=== PATIENT | male | born 1970 | race Caucasian/White ===

== ENCOUNTER 2019-06-09 15:39 | Inpatient (IN) | payer BC, OTHER ==
[2019-06-09] MEDS ORDERED: NS 0.9% 1000 ML** 1,000 ML IV ONE ×2 (17:33→18:37)
[2019-06-09] MEDS ORDERED: Piperacillin/Tazobac ADVAN(*) 3.375 GM in NS 0.9% 100 ML* 100 ML IVPB ONE (17:35)
--- NOTE | 2019-06-09 17:43 | ED ---
Lower Extremity - HPI Summary HPI Summary: This patient is a 48 year old M presenting to [facility] accompanied by son with a chief complaint of right leg pain since 0800. Patient states that he has been feeling unwell for a while and noticed a rash on his right lower extremity at 0800 and eventually decided to come to the ED because of the pain. The patient rates the pain 2/10 in severity. Symptoms aggravated by baring weight and movement. Symptoms alleviated by nothing. Patient reports hot flashes, shortness of breath and fever. Patient reports rare alcohol use. Patient denies any at home medications and past medical problems. Patient denies tobacco use and substance abuse. - History of Current Complaint Chief Complaint: EDGeneral Stated Complaint: FEVER PER PT Time Seen by Provider: 06/09/19 17:23 Hx Obtained From: Patient Onset of Pain: Hours - 0800 Onset/Duration: Still Present Severity Currently: Mild Pain Intensity: 2 Pain Scale Used: 0-10 Numeric Timing: Constant Location: Is Discrete @ - Right lower leg Associated Signs And Symptoms: Positive: Fever, Other - right lower extremity rash Aggravating Factor(s): Ambulation, Movement Alleviating Factor(s): Nothing - Allergies/Home Medications Allergies/Adverse Reactions: Allergies Allergy/AdvReac Type Severity Reaction Status Date / Time No Known Allergies Allergy Verified 06/09/19 15:45 Home Medications: Home Medications NK [No Home Medications Reported] 06/09/19 [History Confirmed 06/09/19] PMH/Surg Hx/FS Hx/Imm Hx Cardiovascular History: Denies: Hx Hypertension Sensory History: Denies: Hx Legally Blind, Hx Deafness Opthamlomology History: Denies: Hx Legally Blind Infectious Disease History: No Infectious Disease History: Denies: Traveled Outside the [place] in Last 30 Days - Family History Known Family History: Negative: Hypertension, Diabetes - Social History Alcohol Use: Occasionally Substance Use Type: Reports: None Smoking Status (MU): Current Every Day Smoker Review of Systems Positive: Fever - 101 F Positive: Shortness Of Breath Positive: Other - right lower extremity rash All Other Systems Reviewed And Are Negative: Yes Physical Exam - Summary Physical Exam Summary: VITAL SIGNS: Reviewed. GENERAL: Patient is a well-developed and nourished (MALE OR FEMALE) who is lying comfortable in the stretcher. Patient is not in any acute respiratory distress. HEAD AND FACE: No signs of trauma. No ecchymosis, hematomas or skull depressions. No sinus tenderness. EYES: PERRLA, EOMI x 2, No injected conjunctiva, no nystagmus. EARS: Hearing grossly intact. Ear canals and tympanic membranes are within normal limits. MOUTH: Oropharynx within normal limits. NECK: Supple, trachea is midline, no adenopathy, no JVD, no carotid bruit, no c- spine tenderness, neck with full ROM. CHEST: Symmetric, no tenderness at palpation. LUNGS: Clear to auscultation bilaterally. No wheezing or crackles. CVS: Regular rate and rhythm, S1 and S2 present, no murmurs or gallops appreciated. ABDOMEN: Soft, non-tender. No signs of distention. No rebound, no guarding, and no masses palpated. Bowel sounds are normal. EXTREMITIES: FROM in all major joints, no edema, no cyanosis or clubbing. Lower right extremity erythema with irregular borders with tenderness. NEURO: Alert and oriented x 3. No acute neurological deficits. Speech is normal and follows commands. SKIN: Dry and warm. Lower right extremity erythema with irregular borders. Triage Information Reviewed: Yes Vital Signs On Initial Exam: Initial Vitals Temp Pulse Resp BP Pulse Ox 98.4 F 115 16 145/79 94 06/09/19 15:42 06/09/19 15:42 06/09/19 15:42 06/09/19 15:42 06/09/19 15:42 Vital Signs Reviewed: Yes Diagnostics - Vital Signs Vital Signs Temp Pulse Resp BP Pulse Ox 06/09/19 17:32 101 F 06/09/19 17:27 109 114/77 94 06/09/19 17:24 111 95 06/09/19 15:42 98.4 F 115 16 145/79 94 - Laboratory Result Diagrams: 06/10/19 04:05 06/10/19 04:05 Lab Statement: Any lab studies that have been ordered have been reviewed, and results considered in the medical decision making process. Lower Extremity Course/Dx - Course Assessment/Plan: This patient is a 48-year-old male who presents to the emergency department with a chief complaint of having flu like symptoms and a rash in the right lower extremity. Blood test results show a wbcs of 15.8, absolute neutrophils 11.7, sodium is 133, potassium 3.2, for which the patient was given potassium chloride and CRP of 104.7. Initially the patient did not follow-through for sepsis therefore I sent blood cultures I started IV fluids and he was given Zosyn. The patients blood pressure decreased and he continues to be slightly tachycardic therefore believe that the patient is becoming septic. Therefore I used a 30 ccs per KG IV fluids and admitted to vancomycin. At this point I discussed my physical exam and findings with Dr. Rico from the hospital services who accepted the patient for admission. - Diagnoses Provider Diagnoses: Cellulitis, Sepsis - Physician Notifications Discussed Care Of Patient With: Miguelina Rico - Hospitalist Time Discussed With Above Provider: 18:36 Instructed by Provider To: Other - Dr. Rico accepts patient for admission. Discharge ED - Sign-Out/Discharge Documenting (check all that apply): Patient Departure - admitted Patient Received Moderate/Deep Sedation with Procedure: No - Discharge Plan Condition: Stable Disposition: ADMITTED TO [facility] - Billing Disposition and Condition Condition: STABLE Disposition: Admitted to [facility] - Attestation Statements Document Initiated by Jacqueline: Yes Documenting Scribe: Isela Plummer Provider For Whom Jacqueline is Documenting (Include Credential): Dr. Byron Aguilar MD Scribe Attestation: I, Isela Plummer scribed for Dr. Byron Aguilar MD on 06/10/19 at 1031. Scribe Documentation Reviewed: Yes Provider Attestation: The documentation as recorded by the Isela tomas accurately reflects the service I personally performed and the decisions made by me, Dr. Byron Aguilar MD Status of Scribe Document: Viewed
[2019-06-09 18:11] LABS: ABS Basophils 0.1 10^3/ul (0-0.2); ABS Eosinophils 0.2 10^3/ul (0-0.6); ABS Lymphocytes 2.7 10^3/ul (1.0-4.8); ABS Monocytes 1.1 10^3/ul (0-0.8); ABS Neutrophils 11.7 10^3/ul (1.5-7.7); Eosinophil % 1.2 %; Hematocrit 43 % (42-52); Hemoglobin 14.9 g/dL (14.0-18.0); Mean Corpuscular HGB Conc 35 g/dL (31-36); Mean Corpuscular Hemoglobin 32 pg (27-31); Mean Corpuscular Volume 92 fL (80-94); Mean Platelet Volume 9.1 fL (7.4-10.4); Platelet Count 149 10^3/uL (150-450); Red Blood Count 4.66 10^6 /uL (4.18-5.48); Red Cell Distribution Width 13 % (10-15); White Blood Count 15.8 10^3/uL (3.5-10.8)
[2019-06-09 18:29] LABS: Albumin 4.1 g/dL (3.2-5.2); Albumin/Globulin Ratio 1.4 (1-3); BUN/Creatinine Ratio 8.3 (8-20); C Reactive Protein 104.7 mg/L (<8.01); Calcium 8.6 mg/dL (8.6-10.3); EGFR African American 88.7 (>60); EGFR Non-African American 73.3 (>60); Potassium 3.2 mmol/L (3.5-5.0); Total Bilirubin 0.9 mg/dL (0.2-1.0); Total Protein 7.1 g/dL (6.4-8.9); Uric Acid 6.5 mg/dL (4.4-7.6)
[2019-06-09] MEDS ORDERED: Vancomycin(*) 1,000 MG in NS 0.9% 250 ML* 250 ML IVPB ONE (18:40)
[2019-06-09] MEDS ORDERED: Potassium Chlor TAB* 20 MEQ TAB.ER PO ONE (18:42)
[2019-06-09] MEDS ORDERED: NS 0.9% IV ONE (18:45)
[2019-06-09 19:14] LABS: Erythrocyte Sed Rate 25 mm/Hr (0-14)
[2019-06-09 19:17] LABS: Magnesium 1.6 mg/dL (1.9-2.7)
[2019-06-09] MEDS ORDERED: Magnesium Sulfate 2 GM IV* 2 GM/50 ML BAG IVPB ONE (19:43)
[2019-06-09] MEDS ORDERED: Acetaminophen TAB* 325 MG ONE (20:09)
[2019-06-09] MEDS: Acetaminophen TAB* 325 MG PO PRN (20:11)
--- NOTE | 2019-06-09 22:18 | HP ---
HOSPITAL MEDICINE HISTORY AND PHYSICAL: DATE OF ADMISSION: 06/09/19 PROVIDER: Naima Hobbs NP. ATTENDING PHYSICIAN WHILE IN THE HOSPITAL: Miguelina Rico MD * (dictated by Naima Hobbs NP). PRIMARY CARE PROVIDER: None. CHIEF COMPLAINT: Fever. HISTORY OF PRESENT ILLNESS: Mr. Freitas is a 48-year-old male with no significant past medical history, who presented to the emergency room with complaints of flu- like symptoms, cough, chills, fever, and fatigue x3 days. The patient reports that he noticed his right lower leg started swelling yesterday and today with mild redness today. He reports that he had increased redness, pain, and swelling to his right lower leg, so he presented to the emergency room for further evaluation. The patient also reports that he has had fever for the past 3 days. He denies any recent injury. He denies any history of cellulitis. He does report that he has a history of MRSA in 2010 after he repaired a tibia plateau fracture on the left. While in the emergency room, the patient had routine lab works drawn. He was found to have leukocytosis with a white count of 15.8, hyponatremia and hypokalemia, hypomagnesium and C-reactive protein of 104.7. The patient also had an episode of hypotension. He did meet for sepsis criteria. He was given fluid boluses. His lactic acid was within normal limits at 0.7. Due to meeting sepsis criteria and leukocytosis with underlying infection, Hospital Medicine was asked to see and evaluate the patient for admission. PAST MEDICAL HISTORY: None. PAST SURGICAL HISTORY: Repair of tibial plateau fracture on the left with degeneration. HOME MEDICATIONS: None. ALLERGIES: No known drug allergies. FAMILY HISTORY: Mother with history of an CT and multiple stent placements. Father with an CT and bypass surgery. Father with history of diabetes. No reported history of cancers. SOCIAL HISTORY: The patient smokes 2 packs per day. Does report occasional alcohol use. Denies any illicit drug use. 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 He lives with his son. Surrogate decision maker in the event he is unable to make his own decision is his son. He is a full code. REVIEW OF SYSTEMS: The patient reports fevers and fatigue. Denies any chest pain. He does report swelling to his right lower leg. Denies any cough, hemoptysis, or shortness of breath. No nausea, vomiting, diarrhea, or abdominal pain. Denies any gross hematuria, dysuria. Denies any focal weakness , sensory loss, visual complaints, dysphagia, arthralgias, or myalgias. He does complain of rash, redness, swelling, and pain to his right lower leg. Denies any psychosis or anxiety. PHYSICAL EXAMINATION GENERAL: At this time, Mr. Freitas is a 48-year-old male. He is alert and oriented. Resting on the stretcher in the emergency room. He is in no acute distress. VITAL SIGNS: Temperature 101, heart rate 106, respiratory rate is 16, blood pressure 117/67, O2 saturation 96% on room air. HEENT: Head is atraumatic, normocephalic. Eyes: EOMs are intact. Sclerae anicteric and not pale. Oral mucosa appeared to be moist. NECK: Supple. LUNGS: Clear to auscultation bilaterally. They are diminished in the bases bilaterally. There is no wheezes, rales, or rhonchi. CARDIAC: S1, S2. Regular rate and rhythm. No murmurs, rubs, or gallops. ABDOMEN: Obese, soft and nontender. Bowel sounds are present x4. EXTREMITIES: He is able to move all 4 extremities. There is no clubbing or cyanosis. Pedal pulses are +2 bilaterally. He does have redness, swelling and warmth noted to his right lower leg. There is no open lesions. NEUROLOGIC: He is awake, alert, and oriented x3. Speech is clear. Thought process is intact. There is no gross focal deficits. SKIN: He does have erythema and swelling noted to his right lower leg. DIAGNOSTIC STUDIES/LAB DATA: WBCs are 15.8, RBCs 4.66, hemoglobin 14.9, hematocrit 43, platelet count 149. ESR was 25. Sodium 133, potassium 3.2, chloride 102, carbon dioxide 22, anion gap was 9, BUN 9, creatinine 1.08, glucose 94, lactic acid 0.7, calcium 8.6, magnesium 1.6. T bili 0.90. ASTs 35 , ALTs 45. Alkaline phosphatase 51. C-reactive protein 104. He had a venous Doppler of his right lower leg. No evidence of DVT in the right leg. Chest x-ray is currently pending. Blood cultures are pending. Urine is currently pending. ASSESSMENT AND PLAN: Mr. Freitas is a 48-year-old male with no significant past medical history presented to the emergency room with complaints of flu-like symptoms x3 days, fever, cough, and chills, found to have cellulitis in his right lower leg. He will be admitted inpatient for: 1. Sepsis. The patient does meet sepsis criteria with leukocytosis of white count of 15.8, tachycardia with a heart rate of 108, and fever of 101 with suspected source of right lower leg cellulitis. The patient's redrew blood cultures are currently pending. I will get a chest x-ray, which is currently pending. The patient has no open lesions on his right lower leg to culture. We will treat him with clindamycin 600 mg q.8 hours. He did receive Zosyn and vancomycin. In the emergency room, the patient does have a history of methicillin-resistant Staphylococcus aureus in 2010 after tibia plateau fracture repair. 2. Hypomagnesium. I will give him 2 g of mag. Repeat mag level in the morning. 3. Hypokalemia. The patient did receive 40 mEq of potassium in the emergency room. We will repeat BMP in the a.m. and replace his potassium as needed. 4. Leukocytosis. I suspect his leukocytosis is related to his underlying cellulitis though I am checking a chest x-ray to rule out pneumonia as the patient does report he has had cough over the past 3 days. 5. FEN. He can have a regular diet. 6. Code status. He is a full code. 7. DVT prophylaxis. I will place him on Lovenox subcu. TIME SPENT: Time spent on this admission was 60 minutes, greater than half that time was spent at the bedside reviewing events leading thus far to his hospitalization, performing physical exam, and reviewing my plan of care. I have discussed this with my attending, Dr. Miguelina Rico; she is in agreement with my plan. NAIMA HOBBS, DIONI [id number]/CPS #: [id number]
[2019-06-09] MEDS: Enoxaparin(*) 40 MG/0.4 ML SYR SUBCUT SCH (22:26)
[2019-06-09 23:51] LABS: Urine Appearance Clear; Urine Bacteria Absent (Absent); Urine Bilirubin Negative (Negative); Urine Blood 1+ (Negative); Urine Color Yellow; Urine Glucose Negative (Negative); Urine Ketones Negative (Negative); Urine Nitrite Negative (Negative); Urine Protein Negative (Negative); Urine Red Blood Cell 1+(3-5/hpf) (Absent); Urine Specific Gravity 1.012 (1.010-1.030); Urine Urobilinogen Negative (Negative); Urine White Blood Cell Absent (Absent)
[2019-06-10] MEDS: Acetaminophen TAB* 325 MG PO PRN ×2 (00:06→20:39)
[2019-06-10] MEDS ORDERED: Ibuprofen TAB* 600 MG ONE (00:36)
[2019-06-10] MEDS: Ibuprofen TAB* 600 MG PO PRN ×3 (00:38→18:36)
[2019-06-10] MEDS: NS 0.9% 1000 ML** 1,000 ML IV SCH ×3 (00:39→14:26)
[2019-06-10] MEDS ORDERED: NS 0.9% 1000 ML** 1,000 ML IV ONE (01:33)
[2019-06-10] MEDS: Clindamycin 600 MG/D5W BAG(*) 600 MG/50 ML BAG IV SCH ×3 (02:33→18:37)
[2019-06-10 04:49] LABS: ABS Lymphocytes 2.8 10^3/ul (1.0-4.8); ABS Monocytes 1.4 10^3/ul (0-0.8); ABS Neutrophils 15.3 10^3/ul (1.5-7.7); Eosinophil % 0.2 %; Hematocrit 41 % (42-52); Hemoglobin 14.2 g/dL (14.0-18.0); Lymphocyte % 14.5 %; Mean Corpuscular HGB Conc 35 g/dL (31-36); Mean Corpuscular Hemoglobin 32 pg (27-31); Mean Corpuscular Volume 92 fL (80-94); Mean Platelet Volume 9.4 fL (7.4-10.4); Platelet Count 149 10^3/uL (150-450); Red Blood Count 4.42 10^6 /uL (4.18-5.48); Red Cell Distribution Width 14 % (10-15); White Blood Count 19.6 10^3/uL (3.5-10.8)
[2019-06-10 05:10] LABS: BUN/Creatinine Ratio 8.3 (8-20); EGFR African American 88.7 (>60); EGFR Non-African American 73.3 (>60); Potassium 3.3 mmol/L (3.5-5.0)
[2019-06-10] MEDS ORDERED: Potassium Chlor TAB* 20 MEQ TAB.ER PO ONE (08:20)
--- NOTE | 2019-06-10 14:11 | PN ---
Subjective Date of Service: 06/10/19 Interval History: Mr. Freitas is feeling better overall. He felt particularly poor overnight when he was febrile. He denies pain at the site of infection. Has been up ambulating. Denies CP, SOB, N/V. Good appetite. Nursing reports he is still meeting sepsis criteria with leukocytosis, tachycardia, tachypnea. Family History: Unchanged from Admission Social History: Unchanged from Admission Past Medical History: Unchanged from Admission Objective Active Medications: Acetaminophen (Tylenol Tab*) 650 mg PO Q4H PRN MILD PAIN or TEMP > 100.4 Enoxaparin Sodium (Lovenox(*)) 40 mg SUBCUT Q24H MAYITO Clindamycin HCl/Dextrose (Cleocin 600 Mg/50 Ml(*)) 600 mg in 50 mls @ 100 mls/ hr IV Q8H MAYITO Sodium Chloride (Ns 0.9% 1000 Ml) 1,000 mls @ 100 mls/hr IV PER RATE MAYITO Ibuprofen (Motrin Tab*) 600 mg PO Q6H PRN MILD PAIN or TEMP > 100.4 Vital Signs - 8 hr 06/10/19 07:40 Temperature 98 F Pulse Rate 107 Respiratory 22 Rate Blood Pressure 128/74 (mmHg) O2 Sat by Pulse 95 Oximetry Oxygen Devices in Use Now: None Appearance: Middle-aged male sitting in bed in NAD Ears/Nose/Mouth/Throat: Mucous Membranes Moist Neck: NL Appearance and Movements; NL JVP, Trachea Midline Respiratory: Symmetrical Chest Expansion and Respiratory Effort, Clear to Auscultation Cardiovascular: NL Sounds; No Murmurs; No JVD, RRR Abdominal: NL Sounds; No Tenderness; No Distention Extremities: No Edema Skin: - - Erythema slightly receding from demarcated area on RLE Neurological: Alert and Oriented x 3 Lines/Tubes/Other Access: Clean, Dry and Intact Peripheral IV Nutrition: Taking PO's Result Diagrams: 06/10/19 04:05 06/10/19 04:05 Assess/Plan/Problems-Billing Assessment: Mr. Freitas is a 48 yo M with PMH of MRSA after a tibial fracture repair; who presented to the ED with c/o fever and was found to have RLE cellulitis. - Patient Problems (1) Cellulitis of right leg Code(s): L03.115 - CELLULITIS OF RIGHT LOWER LIMB Comment: - No known injury and no obvious site of entry - Erythema improving from yesterday - US unremarkable for RLE DVT - Presumed strep, but will cover for MRSA d/t history - Continue clinda (2) Sepsis Comment: - Met criteria on admission with leukocytosis, tachycardia, and fever; source is cellulitis - Still meeting criteria d/t leukocytosis, tachycardia, and tachypnea, but will continue current treatment as cellulitis is improving - Lactic normal - Continue clinda (3) Hypokalemia Code(s): E87.6 - HYPOKALEMIA Comment: - Repleted on admission, but low again this morning - Will replete again today and recheck in AM (4) Hypomagnesemia Code(s): E83.42 - HYPOMAGNESEMIA Comment: - Present on admission, now resolved after repletion (5) DVT prophylaxis Code(s): Z29.9 - ENCOUNTER FOR PROPHYLACTIC MEASURES, UNSPECIFIED Comment: - Lovenox (6) Full code status Code(s): Z78.9 - OTHER SPECIFIED HEALTH STATUS Comment: Status and Disposition: Inpatient for cellulitis and sepsis. Anticipate d/c home when medically stable. Attending: Syed Simeon
[2019-06-10] MEDS: Enoxaparin(*) 40 MG/0.4 ML SYR SUBCUT SCH (20:39)
[2019-06-11] MEDS: NS 0.9% 1000 ML** 1,000 ML IV SCH ×2 (00:14→11:38)
[2019-06-11] MEDS: Clindamycin 600 MG/D5W BAG(*) 600 MG/50 ML BAG IV SCH ×2 (02:54→11:26)
[2019-06-11] MEDS: Ibuprofen TAB* 600 MG PO PRN ×2 (02:54→13:40)
[2019-06-11 06:59] LABS: ABS Eosinophils 0.4 10^3/ul (0-0.6); ABS Lymphocytes 3.3 10^3/ul (1.0-4.8); ABS Monocytes 1.5 10^3/ul (0-0.8); ABS Neutrophils 13.2 10^3/ul (1.5-7.7); Eosinophil % 2.2 %; Hematocrit 39 % (42-52); Hemoglobin 13.5 g/dL (14.0-18.0); Lymphocyte % 17.8 %; Mean Corpuscular HGB Conc 35 g/dL (31-36); Mean Corpuscular Hemoglobin 32 pg (27-31); Mean Corpuscular Volume 92 fL (80-94); Mean Platelet Volume 8.9 fL (7.4-10.4); Nucleated Red Blood Cells % 0.1; Platelet Count 148 10^3/uL (150-450); Red Blood Count 4.23 10^6 /uL (4.18-5.48); Red Cell Distribution Width 14 % (10-15); White Blood Count 18.4 10^3/uL (3.5-10.8)
[2019-06-11 07:20] LABS: Calcium 8.5 mg/dL (8.6-10.3); EGFR African American 120.2 (>60); EGFR Non-African American 99.3 (>60); Potassium 3.8 mmol/L (3.5-5.0)
[2019-06-11] MEDS: Acetaminophen TAB* 325 MG PO PRN ×2 (09:18→22:09)
[2019-06-11] MEDS: ceFAZolin 2 GM PREMIX in ORs 2 GM/50 ML BAG IVPB SCH ×2 (15:10→22:09)
--- NOTE | 2019-06-11 15:32 | PN ---
Subjective Date of Service: 06/11/19 Interval History: Mr. Freitas is feeling better overall today. He c/o new erythema and a mass to his right inner thigh. He reports this appeared overnight. He did have some pain in this region a few days ago, but it was not red or firm at this time. Denies CP, SOB, N/V. Good appetite. No concerns from nursing. Family History: Unchanged from Admission Social History: Unchanged from Admission Past Medical History: Unchanged from Admission Objective Active Medications: Acetaminophen (Tylenol Tab*) 650 mg PO Q4H PRN MILD PAIN or TEMP > 100.4 Enoxaparin Sodium (Lovenox(*)) 40 mg SUBCUT Q24H MAYITO Cefazolin Sodium/Dextrose (Kefzol 2 Gm Premix In Ors(*)) 2 gm in 50 mls @ 100 mls/hr IVPB Q8H MAYITO Ibuprofen (Motrin Tab*) 600 mg PO Q6H PRN MILD PAIN or TEMP > 100.4 Vital Signs - 8 hr 06/11/19 06/11/19 09:00 11:07 Temperature 96.8 F Pulse Rate 93 Respiratory 16 16 Rate Blood Pressure 132/80 (mmHg) O2 Sat by Pulse 93 Oximetry Oxygen Devices in Use Now: None Appearance: Middle-aged male laying in bed in NAD Ears/Nose/Mouth/Throat: Mucous Membranes Moist Neck: NL Appearance and Movements; NL JVP, Trachea Midline Respiratory: Symmetrical Chest Expansion and Respiratory Effort, Clear to Auscultation Cardiovascular: NL Sounds; No Murmurs; No JVD, RRR Abdominal: NL Sounds; No Tenderness; No Distention Extremities: - - Mild nonpitting RLE Skin: - - Erythema to R wolff receding from demarcation; Erythema and firm area to medial R thigh/groin Neurological: Alert and Oriented x 3 Lines/Tubes/Other Access: Clean, Dry and Intact Peripheral IV Nutrition: Taking PO's Result Diagrams: 06/11/19 06:38 06/11/19 06:38 Assess/Plan/Problems-Billing Assessment: Mr. Freitas is a 48 yo M with PMH of MRSA after a tibial fracture repair; who presented to the ED with c/o fever and was found to have RLE cellulitis. - Patient Problems (1) Cellulitis of right leg Code(s): L03.115 - CELLULITIS OF RIGHT LOWER LIMB Comment: - No known injury and no obvious site of entry - Initially, erythema to mid lower leg, now receding from demarcation - Overnight, patient developed erythema and a firm mass to the medial thigh/ groin; very unusual that he would develop another cellulitis when already on clinda - US unremarkable for RLE DVT - Repeat US today of the upper leg showing only cellulitis, no abscess - Change from clinda to cefazolin (2) Sepsis Comment: - Resolved - Met criteria on admission with leukocytosis, tachycardia, and fever; source is cellulitis - Lactic normal (3) Hypokalemia Code(s): E87.6 - HYPOKALEMIA Comment: - Resolved (4) Hypomagnesemia Code(s): E83.42 - HYPOMAGNESEMIA Comment: - Resolved (5) DVT prophylaxis Code(s): Z29.9 - ENCOUNTER FOR PROPHYLACTIC MEASURES, UNSPECIFIED Comment: - Lovenox (6) Full code status Code(s): Z78.9 - OTHER SPECIFIED HEALTH STATUS Comment: Status and Disposition: Inpatient for cellulitis and sepsis. Anticipate d/c home when medically stable. Attending: Mary aCmpos
[2019-06-11] MEDS: Enoxaparin(*) 40 MG/0.4 ML SYR SUBCUT SCH (22:09)
[2019-06-12] MEDS: Acetaminophen TAB* 325 MG PO PRN ×4 (05:50→21:05)
[2019-06-12] MEDS: ceFAZolin 2 GM PREMIX in ORs 2 GM/50 ML BAG IVPB SCH ×3 (06:10→23:25)
[2019-06-12 06:16] LABS: ABS Eosinophils 0.5 10^3/ul (0-0.6); ABS Lymphocytes 2.9 10^3/ul (1.0-4.8); ABS Monocytes 1.1 10^3/ul (0-0.8); ABS Neutrophils 10.9 10^3/ul (1.5-7.7); Hematocrit 39 % (42-52); Hemoglobin 13.6 g/dL (14.0-18.0); Lymphocyte % 18.6 %; Mean Corpuscular HGB Conc 35 g/dL (31-36); Mean Corpuscular Hemoglobin 32 pg (27-31); Mean Corpuscular Volume 93 fL (80-94); Mean Platelet Volume 9.6 fL (7.4-10.4); Nucleated Red Blood Cells % 0.2; Platelet Count 179 10^3/uL (150-450); Red Blood Count 4.23 10^6 /uL (4.18-5.48); Red Cell Distribution Width 14 % (10-15); White Blood Count 15.4 10^3/uL (3.5-10.8)
[2019-06-12] MEDS ORDERED: Zolpidem TAB* 5 MG PO PRN (16:03)
--- NOTE | 2019-06-12 16:10 | PN ---
Subjective Date of Service: 06/12/19 Interval History: Patient seen and examined. No complaints of fevers or chills. Patient is complaining that he got no sleep last night because nurses and staff were waking him constantly. Expresses that he wants to be discharged, however, we discussed the need for continued IV antibiotic treatment. Family History: Unchanged from Admission Social History: Unchanged from Admission Past Medical History: Unchanged from Admission Objective Active Medications: Acetaminophen (Tylenol Tab*) 650 mg PO Q4H PRN PRN Reason: MILD PAIN or TEMP > 100.4 Last Admin: 06/12/19 15:52 Dose: 650 mg Enoxaparin Sodium (Lovenox(*)) 40 mg SUBCUT Q24H MAYITO Last Admin: 06/11/19 22:09 Dose: 40 mg Cefazolin Sodium/Dextrose (Kefzol 2 Gm Premix In Ors(*)) 2 gm in 50 mls @ 100 mls/hr IVPB Q8H MAYITO Last Admin: 06/12/19 15:35 Dose: 100 mls/hr Ibuprofen (Motrin Tab*) 600 mg PO Q6H PRN PRN Reason: MILD PAIN or TEMP > 100.4 Last Admin: 06/11/19 13:40 Dose: 600 mg Zolpidem Tartrate (Ambien Tab*) 5 mg PO BEDTIME PRN PRN Reason: INSOMNIA Vital Signs - 8 hr 06/12/19 06/12/19 06/12/19 11:14 11:15 15:15 Temperature 98.3 F 98.0 F 98.2 F Pulse Rate 88 82 88 Respiratory 16 18 18 Rate Blood Pressure 121/65 129/69 123/57 (mmHg) O2 Sat by Pulse 96 94 97 Oximetry Oxygen Devices in Use Now: None Appearance: alert, anxious Eyes: PERRLA Ears/Nose/Mouth/Throat: - - poor dentition Neck: NL Appearance and Movements; NL JVP, Trachea Midline Respiratory: Symmetrical Chest Expansion and Respiratory Effort, Clear to Auscultation Cardiovascular: NL Sounds; No Murmurs; No JVD, RRR Abdominal: NL Sounds; No Tenderness; No Distention, - - obese Skin: - - right lower wolff improving, remains erythematous, edges retracting, right groin with area of dense palpable swelling with disffuse erythema throughout medial thigh Neurological: Alert and Oriented x 3 Nutrition: Taking PO's Result Diagrams: 06/12/19 05:45 06/11/19 06:38 Microbiology and Other Data: Microbiology 06/10/19 04:05 Aerobic Blood Culture - Preliminary Blood Venous No Growth Day 2 Anaerobic Blood Culture - Preliminary No Growth Day 2 06/09/19 18:00 Aerobic Blood Culture - Preliminary Blood Venous No Growth Day 2 Anaerobic Blood Culture - Preliminary No Growth Day 2 06/10/19 16:20 Nasal Screen MRSA (PCR) - Final Nasal Mrsa Not Detected Diagnostic Imaging: Patient Name: SAVANNAH ROBIN Medical Record#: [id number] Ordering Physician: Althea Carpenter NP Acct.#: [id number] : 1970 Age: 48 Sex: M Location: [address] [place] [address] - MEDICAL Exam Date: 06/11/19 1302 ADM Status: ADM IN Order Information: US SOFT TISSUE LIMITED EXT-RT Accession Number: [id number] CPT: 88286 HISTORY: eval for abscess, soft tissue mass COMPARISONS: None. TECHNIQUE: Multiple transverse and longitudinal ultrasound images were obtained of the area of clinical abnormality of the right thigh using grayscale and color Doppler imaging. Comparison images were obtained of the left thigh. FINDINGS: There is extensive subcutaneous edema. There is no loculated fluid collection to suggest abscess. There are typically benign-appearing right inguinal lymph nodes , without lymphadenopathy by size criteria IMPRESSION: SOFT TISSUE EDEMA CONSISTENT WITH CELLULITIS WITHOUT LOCULATED FLUID COLLECTION TO SUGGEST ABSCESS <Electronically signed by Kyle Sherman MD in OV> 06/11/19 4412 Dictated By: Kyle Sherman MD Dictated Date/Time: 06/11/19 1354 Transcribed Date/Time: 06/11/19 1352 Copy to: Assess/Plan/Problems-Billing Assessment: Mr. Robin is a 48 yo M with PMH of MRSA after a tibial fracture repair; who presented to the ED with c/o fever and was found to have RLE cellulitis. - Patient Problems (1) Cellulitis of right leg Code(s): L03.115 - CELLULITIS OF RIGHT LOWER LIMB SNOMED Code(s): 363255396 Comment: - No known injury and no obvious site of entry - Initially, erythema to mid lower leg, now receding from demarcation - On 06/11, developed erythema and a firm mass to the medial thigh/groin; very unusual that he would develop another cellulitis when already on clinda, but patient states he had pain in this region before the cellulitis started to show on the distal portion of his leg - US unremarkable for RLE DVT - Repeat US 06/11 as above without abscess, however, will continue to monitor in case this area coalesces into an abscess - Changed from clinda to cefazolin yesterday, WBC trending down, afebrile (2) Insomnia Code(s): G47.00 - INSOMNIA, UNSPECIFIED SNOMED Code(s): 478372609 Comment: - Ambien PRN (3) Hypokalemia Code(s): E87.6 - HYPOKALEMIA SNOMED Code(s): 20947227 Comment: - Resolved (4) Hypomagnesemia Code(s): E83.42 - HYPOMAGNESEMIA SNOMED Code(s): 529941883 Comment: - Resolved (5) Sepsis Comment: - Resolved - Met criteria on admission with leukocytosis, tachycardia, and fever; source is cellulitis - Lactic normal (6) DVT prophylaxis Code(s): Z29.9 - ENCOUNTER FOR PROPHYLACTIC MEASURES, UNSPECIFIED SNOMED Code( s): 052486921 Comment: - Lovenox (7) Full code status Code(s): Z78.9 - OTHER SPECIFIED HEALTH STATUS SNOMED Code(s): 115514729 Comment: Status and Disposition: Inpatient for cellulitis and sepsis. Anticipate d/c home when medically stable.
[2019-06-12] MEDS: Enoxaparin(*) 40 MG/0.4 ML SYR SUBCUT SCH (20:51)
[2019-06-13 06:29] LABS: Hematocrit 40 % (42-52); Mean Corpuscular HGB Conc 35 g/dL (31-36); Mean Corpuscular Hemoglobin 32 pg (27-31); Mean Corpuscular Volume 92 fL (80-94); Mean Platelet Volume 9.4 fL (7.4-10.4); Platelet Count 228 10^3/uL (150-450); Red Blood Count 4.35 10^6 /uL (4.18-5.48); Red Cell Distribution Width 14 % (10-15); White Blood Count 10.6 10^3/uL (3.5-10.8)
[2019-06-13] MEDS: ceFAZolin 2 GM PREMIX in ORs 2 GM/50 ML BAG IVPB SCH (06:39)
[2019-06-13] MEDS: ceFAZolin* 2 GM in NS 100 MLS Q8H (Pharmacy Admix) IVPB SCH ×2 (14:57→22:46)
--- NOTE | 2019-06-13 17:11 | PN ---
Subjective Date of Service: 06/13/19 Interval History: Patient seen and examined. Feeling better, slept well. States pain is much improved. No fevers, no need for tylenol last 24 hours. Feels the redness in his leg is getting better. Family History: Unchanged from Admission Social History: Unchanged from Admission Past Medical History: Unchanged from Admission Objective Active Medications: Acetaminophen (Tylenol Tab*) 650 mg PO Q4H PRN PRN Reason: MILD PAIN or TEMP > 100.4 Last Admin: 06/12/19 21:05 Dose: 650 mg Enoxaparin Sodium (Lovenox(*)) 40 mg SUBCUT Q24H MAYITO Last Admin: 06/12/19 20:51 Dose: 40 mg Cefazolin Sodium 2 gm/ Sodium (Chloride) 100 mls @ 200 mls/hr IVPB Q8H MAYITO Last Admin: 06/13/19 14:57 Dose: 200 mls/hr Ibuprofen (Motrin Tab*) 600 mg PO Q6H PRN PRN Reason: MILD PAIN or TEMP > 100.4 Last Admin: 06/11/19 13:40 Dose: 600 mg Zolpidem Tartrate (Ambien Tab*) 5 mg PO BEDTIME PRN PRN Reason: INSOMNIA Vital Signs - 8 hr 06/13/19 06/13/19 10:57 14:48 Temperature 97.9 F 99.0 F Pulse Rate 65 70 Respiratory 18 18 Rate Blood Pressure 131/77 137/83 (mmHg) O2 Sat by Pulse 96 95 Oximetry Oxygen Devices in Use Now: None Appearance: alert, NAD Eyes: No Scleral Icterus, PERRLA Ears/Nose/Mouth/Throat: Mucous Membranes Moist Neck: NL Appearance and Movements; NL JVP Respiratory: Symmetrical Chest Expansion and Respiratory Effort, Clear to Auscultation Cardiovascular: NL Sounds; No Murmurs; No JVD, RRR Abdominal: NL Sounds; No Tenderness; No Distention, No Hepatosplenomegaly Extremities: No Clubbing, Cyanosis, - Skin: - - erythema to RLE improved, right groin lump decreased in size, remains warm to touch Neurological: Alert and Oriented x 3 Nutrition: Taking PO's Result Diagrams: 06/13/19 06:00 06/11/19 06:38 Microbiology and Other Data: Microbiology 06/10/19 04:05 Aerobic Blood Culture - Preliminary Blood Venous No Growth Day 2 Anaerobic Blood Culture - Preliminary No Growth Day 2 06/09/19 18:00 Aerobic Blood Culture - Preliminary Blood Venous No Growth Day 2 Anaerobic Blood Culture - Preliminary No Growth Day 2 06/10/19 16:20 Nasal Screen MRSA (PCR) - Final Nasal Mrsa Not Detected Diagnostic Imaging: Patient Name: SAVANNAH FREITAS Medical Record#: [id number] Ordering Physician: Althea Carpenter NP Acct.#: [id number] : 1970 Age: 48 Sex: M Location: [address] [place] [address] - MEDICAL Exam Date: 06/11/19 1302 ADM Status: ADM IN Order Information: US SOFT TISSUE LIMITED EXT-RT Accession Number: [id number] CPT: 40162 HISTORY: eval for abscess, soft tissue mass COMPARISONS: None. TECHNIQUE: Multiple transverse and longitudinal ultrasound images were obtained of the area of clinical abnormality of the right thigh using grayscale and color Doppler imaging. Comparison images were obtained of the left thigh. FINDINGS: There is extensive subcutaneous edema. There is no loculated fluid collection to suggest abscess. There are typically benign-appearing right inguinal lymph nodes , without lymphadenopathy by size criteria IMPRESSION: SOFT TISSUE EDEMA CONSISTENT WITH CELLULITIS WITHOUT LOCULATED FLUID COLLECTION TO SUGGEST ABSCESS <Electronically signed by Kyle Sherman MD in OV> 06/11/19 1352 Dictated By: Kyle Sherman MD Dictated Date/Time: 06/11/19 1353 Transcribed Date/Time: 06/11/19 135 Copy to: Assess/Plan/Problems-Billing Assessment: Mr. Freitas is a 48 yo M with PMH of MRSA after a tibial fracture repair; who presented to the ED with c/o fever and was found to have RLE cellulitis. - Patient Problems (1) Cellulitis of right leg Code(s): L03.115 - CELLULITIS OF RIGHT LOWER LIMB SNOMED Code(s): 483385828 Comment: - No known injury and no obvious site of entry - Initially, erythema to mid lower leg, now receding from demarcation - On 06/11, developed erythema and a firm mass to the medial thigh/groin, US unremarkable for RLE DVT - Repeat US 06/11 as above without abscess, firm area showing clinical improvement - Changed from clinda to cefazolin 06/11, WBC trending down, afebrile (2) Insomnia Code(s): G47.00 - INSOMNIA, UNSPECIFIED SNOMED Code(s): 803306584 Comment: - Ambien PRN (3) Hypokalemia Code(s): E87.6 - HYPOKALEMIA SNOMED Code(s): 59050494 Comment: - Resolved (4) Hypomagnesemia Code(s): E83.42 - HYPOMAGNESEMIA SNOMED Code(s): 745286353 Comment: - Resolved (5) Sepsis Comment: - Resolved - Met criteria on admission with leukocytosis, tachycardia, and fever; source is cellulitis - Lactic normal (6) DVT prophylaxis Code(s): Z29.9 - ENCOUNTER FOR PROPHYLACTIC MEASURES, UNSPECIFIED SNOMED Code( s): 630700835 Comment: - Lovenox (7) Full code status Code(s): Z78.9 - OTHER SPECIFIED HEALTH STATUS SNOMED Code(s): 232814709 Comment: Status and Disposition: Inpatient for cellulitis and sepsis. Anticipate d/c home in AM.
[2019-06-13] MEDS: Enoxaparin(*) 40 MG/0.4 ML SYR SUBCUT SCH (20:00)
[2019-06-13] MEDS: Acetaminophen TAB* 325 MG PO PRN (21:09)
[2019-06-14] MEDS: ceFAZolin* 2 GM in NS 100 MLS Q8H (Pharmacy Admix) IVPB SCH (06:12)
[2019-06-14 06:22] VITALS: BP 124/73
--- NOTE | 2019-06-14 22:21 | DS ---
CC: Bret Smart NP * DISCHARGE SUMMARY: DATE OF ADMISSION: 06/09/19 DATE OF DISCHARGE: 06/14/19 PRIMARY CARE PROVIDER: None, but he has had referrals for [facility] and Bret Smart in [place]. ATTENDING PHYSICIAN: Dr. Jerry.* (DICTATED BY MINGO MUNSON NP) HOSPITAL COURSE: Mr. Freitas is a 49-year-old male with no reported medical history who came to the emergency department with complaint of cough, chills, fever, and fatigue x3 days and then noticed some redness to his right lower extremity and then some swelling up into the right groin. The patient stated that he has never had soft tissue infection in the past. He did have a MRSA infection in 2010 after a tibial plateau fracture on the left but never had any issues on his right leg. He met for SIRS criteria. In the emergency department , he was given fluid boluses, although his lactic acid was negative. He did have some electrolyte disturbances, hypokalemia, and hypomagnesemia. CRP was slightly elevated at 104.7 and he had a white count of 15.8. His blood cultures were negative and he did not have any open wounds to be cultured. He was started empirically on clindamycin for soft tissue infection. He also received Zosyn and vancomycin in the emergency department given his history of MRSA. His electrolytes were repleted and he was continued on IV fluids. He was complaining of some pain in the upper part of the groin. He had an ultrasound to rule out DVT for the swelling in his leg, which was negative. He was also given Tylenol for the pain and edema, which worked well for him. He did, approximately 24 hours into his admission, start complaining of an area of firm tenderness up into the right groin, it appeared to be the start of an abscess. He also had an ultrasound of this area to ensure that this was not coalescing abscess up in the groin. That ultrasound just showed some soft tissue edema consistent with cellulitis but did not show loculated fluid collection to suggest an abscess forming. We did change the patient's antibiotics from clindamycin to cefazolin. He was on 2 g q.8 hours and seemed to respond better to the cefazolin. The erythema on the lower distal part of the leg and the medial part of the thigh did retract from the areas of demarcation that were marked by nursing and the area of firmness and edema into the right groin also began to subside. On the morning of 06/14/19, the patient states he is feeling much better. The erythema is almost completely gone on his leg and the area in groin that was swollen is essentially resolved. The patient is going to be discharged to home on oral antibiotics with outpatient followup. DISCHARGE DIAGNOSES: 1. Cellulitis of the right lower extremity. 2. Leukocytosis and systemic inflammatory response syndrome criteria secondary to cellulitis of the right lower extremity. 3. Electrolyte imbalances. 4. History of tobacco abuse. MEDICATIONS FOR DISCHARGE: Include Keflex 500 mg p.o. 3 times daily for 4 more days. REVIEW OF SYSTEMS: A 10-point review of systems is negative except as noted in hospital course above. PHYSICAL EXAMINATION: On the day of discharge, the patient is well appearing and in no acute distress. Vital signs are blood pressure 124/73, heart rate 76 , respiratory rate 16, O2 saturation 93% on room air with temperature of 98.4. HEENT: The patient is atraumatic, normocephalic. PERRLA. Nonicteric sclerae. Oral mucosa is moist. Neck is supple, nontender. No JVD noted. No carotid bruits auscultated. No thyromegaly appreciated. Cardiovascular: S1, S2 present. No murmurs, gallops, or rubs noted. Rate and rhythm are regular. Lungs are clear bilaterally to auscultation with no adventitious breath sounds. Abdomen is soft, nontender, nondistended. Positive bowel sounds in all 4 quadrants. : Deferred. Musculoskeletal: There is no clubbing, no cyanosis. He does have some trace edema in the lateral portion of the distal wolff. Erythema is greatly improved. He has also greatly improved erythema to the medial thigh. One small area of firm tenderness into the right groin, which also is significantly improved. Neurologic: He is grossly intact with no focal deficits. Psychiatric: He is cooperative and appropriate. LABORATORY DATA: WBC is 10.6, RBC is 4.35, hemoglobin 14, hematocrit 40, platelets 228. Sodium 141, potassium 3.8, chloride 113, BUN 10, creatinine 0.83 , lactic acid 0.7, calcium 8.5, magnesium 2.0. Ultrasounds as noted above. Negative for DVT and negative for abscess. DISPOSITION: The patient was discharged to home in stable condition. FOLLOWUP: The patient was instructed to follow up with Bret Smart. He was given referral for new patient and also for [facility] until he can be established as a new patient with Dr. Smart in [place]. ACTIVITY: Progress activity as tolerated without restriction. DIET: Regular as tolerated. TIME SPENT: Forty minutes on discharge planning. MINGO MUNSON, PAY CLERK [id number]/CPS #: [id number]
== END 2019-06-14 10:40 | disposition home or self-care (01) | DRG 720 ==
LOC: ED 15:39 → MED 19:44
PROVIDERS: ADMIT Internal Medicine; ATTEND Internal Medicine
DX: A41.9 Sepsis, unspecified organism (principal); L03.115 Cellulitis of right lower limb; E87.6 Hypokalemia; E83.42 Hypomagnesemia; F17.210 Nicotine dependence, cigarettes, uncomplicated; G47.00 Insomnia, unspecified; Z82.49 Family history of ischemic heart disease and other diseases of the circulatory system; Z83.3 Family history of diabetes mellitus; Z72.89 Other problems related to lifestyle
CPT/HCPCS: 36415; 71046; 80048; 80053; 81003; 81015; 83605; 83735; 84550; 85025; 85027; 85652; 86140; 87040; 87641; 99284; A9270-GY; J0690; J1650; J2543; J3370; J3475